=== PATIENT | male | born 1990 | race Asian ===

== ENCOUNTER 2017-03-07 10:52 | Emergency (ER) | payer OTHER ==
[~2017-03-07] VITALS: Ht 165.1 cm; Wt 40.9 kg
[2017-03-07 10:55] VITALS: O2SAT 98; Ht 165.1 cm; Wt 40.9 kg
[2017-03-07] MEDS ORDERED: ONDANSETRON INJ 2 MG/ML 2 ML VIAL IV STA (11:08)
[2017-03-07] MEDS ORDERED: SODIUM CHLORIDE 0.9% 1000ML 1,000 ML IV STA (11:08)
[2017-03-07] MEDS ORDERED: DIPHTHERIA/TETANUS/PERTUSSIS 0.5 ML SYR/VIAL IM. ONE (11:15)
[2017-03-07] MEDS ORDERED: OPTIRAY 320 IV PRN (11:15)
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
[2017-03-07 11:23] LABS: HEMATOCRIT 47.3 % (42-52); MEAN CELL VOLUME 88.9 fL (80-100); MEAN CORPUSCULAR HEMOGLOBIN 31.2 pg (25-34); MEAN CORPUSCULAR HGB CONC 35.1 g/dl (32-36); MEAN PLATELET VOLUME 10.4 fL (7.4-10.4); PLATELET COUNT 251 K/uL (130-400); RED BLOOD COUNT 5.32 M/uL (4.7-6.1); WHITE BLOOD COUNT 9.82 K/uL (4.8-10.8)
[2017-03-07 11:39] LABS: ISTAT CREATININE 0.8 mg/dl (0.6-1.3); ISTAT HEMOGLOBIN 16.7 g/dl (14.0-18.0); ISTAT IONIZED CALCIUM 1.24 mmol/l (1.12-1.32)
[2017-03-07 11:42] LABS: ALT/SGPT 63 U/L (12-78); AST/SGOT 42 U/L (15-37); BLOOD UREA NITROGEN 14 mg/dl (7-18); BUN/CREATININE RATIO 14.6 (10-20); CARBON DIOXIDE 24 mmol/L (21-32); CHLORIDE 102 mmol/L (98-107); CREATININE 0.99 mg/dl (0.60-1.40); GLUCOSE 150 mg/dl (70-99); POTASSIUM 3.3 mmol/L (3.5-5.1); SODIUM 136 mmol/L (136-145)
[2017-03-07 11:48] LABS: ALKALINE PHOSPHATASE 65 U/L (45-117)
[2017-03-07 11:50] LABS: BASO ABS # 0.17 K/uL (0-0.2); BASOPHIL % 1.7 % (0-2); COMPLETE YES; EOSINOPHIL % 5.2 %; LYMPH ABS # 2.73 K/uL (1.2-3.4); LYMPHOCYTE % 27.8 %; NEUTROPHILS % 39.2 %; VARIANT LYM ABS # 2.05 K/uL; VARIANT LYMPHOCYTE % 20.9 %
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
[2017-03-07] MEDS ORDERED: LIDO/EPINEPHRINE/SOD BICARB 20 ML VIAL INFIL ONE (12:39)
[2017-03-07] MEDS ORDERED: ONDA4TAB10 SL (13:19)
[2017-03-07] MEDS ORDERED: TRAM-453 PO (13:19)
[2017-03-07 13:43] VITALS: BP 102/58; PULSE 99; TEMP 36.5; O2SAT 97
== END 2017-03-07 13:45 | disposition home or self-care (01) ==
LOC: C.EDC 10:57
DX: E87.6 Hypokalemia (principal); S01.81XA Laceration without foreign body of other part of head, initial encounter; V49.40XA Driver injured in collision with unspecified motor vehicles in traffic accident, initial encounter; Y92.488 Other paved roadways as the place of occurrence of the external cause; M25.521 Pain in right elbow; Z23 Encounter for immunization